=== PATIENT | female | born 1980 | race Caucasian/White ===

== ENCOUNTER → 2016-11-30 | Outpatient (REF) ==
--- NOTE | 2016-12-01 02:00 | REP ---
Clinical: Pain and disability. Technique: AP, lateral, cone down views of the lumbosacral spine. Findings: Alignment and lordosis maintained. No acute fracture / compression injury or subluxation at mild to moderate age-related degenerative changes are appreciated including early anterior spurring, endplate sclerosis and minimal disc space narrowing. Impression: Mild to moderate age-related degenerative changes. No acute fracture / compression injury or subluxation. Signed by Arley Guevara MD 12/01/2016 01:52 A
== END ==
LOC: M SMT 15:10
PROVIDERS: ATTEND Internal Medicine
DX: M54.5 Low back pain (principal)

== ENCOUNTER → 2022-05-19 | Outpatient (CLI) | payer MEDICARE | LOC: M WHC 16:04 | PROVIDERS: ATTEND Nurse Practitioner Family | DX: Z12.31 Encounter for screening mammogram for malignant neoplasm of breast (principal); R92.2 Inconclusive mammogram ==

== ENCOUNTER → 2022-06-20 | Outpatient (CLI) | payer MEDICARE ==
[~2022-06-20] MED LIST: ALBU8.5H; BACL10TA2; BUPR-71; CEPH500C PO; ESCITALOPRAM; LAMO200T3; LINZ72CA; MONT10TA97; ONDA-83; PRED20TA PO; SYMB16INH; TRAZ-252
== END ==
LOC: M WHC 08:11
PROVIDERS: ATTEND Nurse Practitioner Family
DX: R92.8 Other abnormal and inconclusive findings on diagnostic imaging of breast (principal); N63.12 Unspecified lump in the right breast, upper inner quadrant

== ENCOUNTER 2022-06-28 16:38 | Emergency (ER) | payer MEDICARE ==
[~2022-06-28] VITALS: Ht 160 cm; Wt 63.6 kg
[2022-06-28] MEDS ORDERED: BACL10TA2 (16:55)
[2022-06-28] MEDS ORDERED: LAMO200T3 (16:55)
[2022-06-28] MEDS ORDERED: MONT10TA97 (16:55)
[2022-06-28] MEDS ORDERED: LINZ72CA (16:55)
[2022-06-28] MEDS ORDERED: ALBU8.5H (16:55)
[2022-06-28] MEDS ORDERED: BUPR-71 (16:55)
[2022-06-28] MEDS ORDERED: SYMB16INH (16:55)
[2022-06-28] MEDS ORDERED: TRAZ-252 (16:55)
[2022-06-28] MEDS ORDERED: ESCITALOPRAM (16:55)
[2022-06-28] MEDS ORDERED: ONDA-83 (16:55)
[2022-06-28 17:43] LABS: RSV AMPLIFICATION NEGATIVE (NEGATIVE)
[2022-06-28] MEDS ORDERED: NS 1,000 ML IV ONE (19:45)
[2022-06-28] MEDS ORDERED: diphenhydrAMINE 50MG/ML VIAL IV ONE (19:45)
[2022-06-28] MEDS ORDERED: ALBUTEROL 90 MCG/ACT 8GM HFA INHALER INH ONE (19:45)
[2022-06-28] MEDS ORDERED: FAMOTIDINE 20MG/2ML VIAL IVP ONE (19:45)
[2022-06-28] MEDS ORDERED: methylPREDNISolone 125MG 2ML VIAL IV ONE (19:45)
[2022-06-28 20:24] LABS: BASO % 0.5 % (0.0-1.0); EOS % 0.5 % (0.0-3.0); HEMATOCRIT 46.7 % (36.0-47.0); HEMOGLOBIN 15.3 g/dl (12.0-15.5); LYMPH # 2.1 10^3/uL (1.5-5.0); MEAN CORPUSCULAR HEMOGLOBIN 30.5 pg (27.0-33.0); MEAN CORPUSCULAR HGB CONC 32.8 g/dl (32.0-36.5); MEAN CORPUSCULAR VOLUME 93.2 fl (80.0-96.0); MONO # 0.5 10^3/uL (0.0-0.8); NEUTROPHILS # 3.9 10^3/uL (1.5-8.5); NEUTROPHILS % 58.7 % (36.0-66.0); PLATELET COUNT, AUTOMATED 235 10^3/uL (150-450); RED BLOOD COUNT 5.01 10^6/uL (4.00-5.40); WHITE BLOOD COUNT 6.7 10^3/uL (4.0-10.0)
[2022-06-28 20:48] LABS: BLOOD UREA NITROGEN 12 MG/DL (9-23); CALCIUM LEVEL 9.1 MG/DL (8.5-10.1); CARBON DIOXIDE LEVEL 28 MMOL/L (20-31); CHLORIDE LEVEL 102 MMOL/L (98-107); CK-MB VALUE MASS 1.1 NG/ML (<3.6); CREATININE FOR GFR 1.03 MG/DL (0.55-1.30); GLOMERULAR FILTRATION RATE > 60.0 (>58); GLUCOSE, FASTING 82 MG/DL (60-100); POTASSIUM SERUM 3.5 MMOL/L (3.5-5.1); SODIUM LEVEL 139 MMOL/L (136-145)
[2022-06-28 20:49] LABS: MB/CK RELATIVE INDEX 1.27 (< OR =4)
[2022-06-28] MEDS ORDERED: CEPHALEXIN 500 MG CAP PO ONE (21:10)
[2022-06-28 21:50] LABS: CK-MB VALUE MASS < 1.0 NG/ML (<3.6)
[2022-06-28 21:56] LABS: CPK CREATINE PHOSPHOKINASE 74 U/L (34-145); MB/CK RELATIVE INDEX 1.35 (< OR =4)
[2022-06-28] MEDS ORDERED: CEPH500C PO (22:40)
[2022-06-28] MEDS ORDERED: PRED20TA PO (22:40)
[2022-06-28 23:17] VITALS: BP 118/63
== END 2022-06-28 23:21 | disposition home or self-care (01) ==
LOC: M ED 20:17
DX: J02.0 Streptococcal pharyngitis (principal); A38.9 Scarlet fever, uncomplicated; F31.9 Bipolar disorder, unspecified; F43.10 Post-traumatic stress disorder, unspecified; J45.909 Unspecified asthma, uncomplicated; F17.200 Nicotine dependence, unspecified, uncomplicated; F12.10 Cannabis abuse, uncomplicated; Z88.0 Allergy status to penicillin

== ENCOUNTER → 2022-07-03 | Outpatient (REF) | payer MEDICARE ==
[2022-07-03 12:31] LABS: BASO # 0.1 10^3/uL (0.0-0.2); BASO % 0.5 % (0.0-1.0); EOS # 0.1 10^3/uL (0.0-0.5); EOS % 0.4 % (0.0-3.0); HEMATOCRIT 43.1 % (36.0-47.0); LYMPH # 4.8 10^3/uL (1.5-5.0); LYMPH % 41.8 % (24.0-44.0); MEAN CORPUSCULAR HEMOGLOBIN 30.8 pg (27.0-33.0); MEAN CORPUSCULAR HGB CONC 32.5 g/dl (32.0-36.5); MEAN CORPUSCULAR VOLUME 94.7 fl (80.0-96.0); MONO # 0.8 10^3/uL (0.0-0.8); MONO % 6.5 % (2.0-8.0); NEUTROPHILS # 5.7 10^3/uL (1.5-8.5); NEUTROPHILS % 49.8 % (36.0-66.0); PLATELET COUNT, AUTOMATED 279 10^3/uL (150-450); RED BLOOD COUNT 4.55 10^6/uL (4.00-5.40); WHITE BLOOD COUNT 11.5 10^3/uL (4.0-10.0)
[2022-07-03 12:54] LABS: ALBUMIN 3.6 G/DL (3.2-5.2); ALKALINE PHOSPHATASE 68 U/L (46-116); ALT/SGPT 19 U/L (7.0-40); AST/SGOT 14 U/L (<34); BILIRUBIN,TOTAL 0.2 MG/DL (0.3-1.2); BLOOD UREA NITROGEN 22 MG/DL (9-23); CARBON DIOXIDE LEVEL 26 MMOL/L (20-31); CHLORIDE LEVEL 104 MMOL/L (98-107); CHOLESTEROL LEVEL 167 MG/DL (<200); CHOLESTEROL RISK RATIO 2.51 (<5); CREATININE FOR GFR 0.88 MG/DL (0.55-1.30); GLOMERULAR FILTRATION RATE > 60.0 (>58); GLUCOSE, FASTING 81 MG/DL (60-100); HDL CHOLESTEROL 66.4 MG/DL (>40); LDL CHOLESTEROL 80.8 MG/DL (<100); NON-HDL-C 101 MG/DL; POTASSIUM SERUM 3.9 MMOL/L (3.5-5.1); SODIUM LEVEL 139 MMOL/L (136-145); TOTAL PROTEIN 6.5 G/DL (5.7-8.2); TRIGLYCERIDES LEVEL 99 MG/DL (<150)
[2022-07-03 12:55] LABS: FREE T4 0.98 NG/DL (0.89-1.76); THYROID STIMULATING HORMONE 1.568 uIU/ML (0.55-4.78)
[2022-07-03 13:22] LABS: HEMOGLOBIN A1c 4.9 % (4.0-6.0)
== END ==
LOC: M LAB REF 12:01
PROVIDERS: ATTEND Nurse Practitioner Family
DX: Z13.228 Encounter for screening for other metabolic disorders (principal)

== ENCOUNTER → 2022-07-17 | Outpatient (CLI) | payer MEDICARE | LOC: M RAD 12:43 | PROVIDERS: ATTEND Nurse Practitioner Family | DX: J45.909 Unspecified asthma, uncomplicated (principal) ==